=== PATIENT | male | born 1960 | race American Indian/Alaskan Native ===

== ENCOUNTER 2020-08-29 00:33 | Emergency (ER) | payer OTHER ==
[2020-08-29] MEDS ORDERED: OXYMETAZOLINE 0.05% NASAL SPRAY NS ONE (01:13)
--- NOTE | 2020-08-29 01:27 | Emergency Department Report ---
ED ENT HPI - General Chief complaint: Nosebleed Stated complaint: HYPERTENSION Time Seen by Provider: 08/29/20 01:01 Source: patient, EMS Mode of arrival: Stretcher Limitations: No Limitations - History of Present Illness Initial comments: Patient is a 59-year-old male that presents emergency room with complaints of nosebleed. He states his nosebleed started 1 hour prior to arrival. He states he is tried direct pressure. Patient states he can get it to stop. Patient denies trauma. Patient denies fall. Patient denies headache. Patient denies s hortness of breath. Patient denies blurry vision. Patient denies chest pain. Patient denies fever and chills. Patient denies cough. Patient denies respiratory symptoms. Patient denies recent travel. Patient denies recent international travel. Patient denies exposure to the novel coronavirus. Patient denies sick contacts. Patient denies fever and chills. Patient denies cough. Patient denies diarrhea. Patient denies coming in contact with anybody with symptoms of the novel coronavirus. Patient's blood pressure was elevated in the field per EMS. Report received from EMS. Patient's blood pressure now is 140/60. MD complaint: epistaxis -: Sudden Severity: severe Consistency: constant Improves with: pressure, swallowing, rest Worsens with: movement Associated Symptoms: denies: fever, cough, gum swelling, toothache, pain with swallowing, sore throat, tinnitus, hearing loss, discharge from ear, rhinorrhea - Related Data Home Medications Medication Instructions Recorded Confirmed Last Taken Amlodipine Besylate [Norvasc] 10 mg PO 08/29/20 1 Day Ago ~08/28/20 Clonidine HCl/Chlorthalidone 1 each PO 08/29/20 1 Day Ago [Clorpres 0.2-15 Tablet] ~08/28/20 Nebivolol HCl [Bystolic] 1 tab PO DAILY 08/29/20 08/29/20 1 Day Ago ~08/28/20 Nebivolol HCl [Bystolic] 20 mg PO 08/29/20 1 Day Ago ~08/28/20 Pravastatin [Pravachol] 40 mg PO QHS 08/29/20 08/29/20 1 Day Ago ~08/28/20 cloNIDine [Catapres] 0.2 mg PO 08/29/20 08/29/20 1 Day Ago ~08/28/20 hydroCHLOROthiazide [HCTZ] 08/29/20 1 Day Ago ~08/28/20 Allergies Allergy/AdvReac Type Severity Reaction Status Date / Time No Known Allergies Allergy Unverified 08/29/20 01:11 ED Dental HPI - General Chief complaint: Nosebleed Stated complaint: HYPERTENSION Time Seen by Provider: 08/29/20 01:24 Source: patient, EMS Mode of arrival: Stretcher Limitations: No Limitations - Related Data Home Medications Medication Instructions Recorded Confirmed Last Taken Amlodipine Besylate [Norvasc] 10 mg PO 08/29/20 1 Day Ago ~08/28/20 Clonidine HCl/Chlorthalidone 1 each PO 08/29/20 1 Day Ago [Clorpres 0.2-15 Tablet] ~08/28/20 Nebivolol HCl [Bystolic] 1 tab PO DAILY 08/29/20 08/29/20 1 Day Ago ~08/28/20 Nebivolol HCl [Bystolic] 20 mg PO 08/29/20 1 Day Ago ~08/28/20 Pravastatin [Pravachol] 40 mg PO QHS 08/29/20 08/29/20 1 Day Ago ~08/28/20 cloNIDine [Catapres] 0.2 mg PO 08/29/20 08/29/20 1 Day Ago ~08/28/20 hydroCHLOROthiazide [HCTZ] 08/29/20 1 Day Ago ~08/28/20 Allergies Allergy/AdvReac Type Severity Reaction Status Date / Time No Known Allergies Allergy Unverified 08/29/20 01:11 ED Review of Systems ROS: Stated complaint: HYPERTENSION Other details as noted in HPI Constitutional: denies: chills, fever Eyes: denies: eye pain, eye discharge, vision change ENT: as per HPI, epistaxis. denies: ear pain, throat pain Respiratory: denies: cough, shortness of breath, wheezing Cardiovascular: denies: chest pain, palpitations Endocrine: no symptoms reported Gastrointestinal: denies: abdominal pain, nausea, diarrhea Genitourinary: denies: urgency, dysuria Musculoskeletal: denies: back pain, joint swelling, arthralgia Skin: denies: rash, lesions Neurological: denies: headache, weakness, paresthesias Psychiatric: denies: anxiety, depression Hematological/Lymphatic: denies: easy bleeding, easy bruising ED Past Medical Hx - Past Medical History Previous Medical History?: Yes Hx Hypertension: Yes Additional medical history: Hyperlipidemia - Surgical History Past Surgical History?: No - Family History Family history: no significant - Social History Smoking Status: Never Smoker - Medications Home Medications: Home Medications Medication Instructions Recorded Confirmed Last Taken Type Amlodipine Besylate [Norvasc] 10 mg PO 08/29/20 1 Day Ago History ~08/28/20 Clonidine HCl/Chlorthalidone 1 each PO 08/29/20 1 Day Ago History [Clorpres 0.2-15 Tablet] ~08/28/20 Nebivolol HCl [Bystolic] 1 tab PO DAILY 08/29/20 08/29/20 1 Day Ago History ~08/28/20 Nebivolol HCl [Bystolic] 20 mg PO 08/29/20 1 Day Ago History ~08/28/20 Pravastatin [Pravachol] 40 mg PO QHS 08/29/20 08/29/20 1 Day Ago History ~08/28/20 cloNIDine [Catapres] 0.2 mg PO 08/29/20 08/29/20 1 Day Ago History ~08/28/20 hydroCHLOROthiazide [HCTZ] 08/29/20 1 Day Ago History ~08/28/20 ED Physical Exam - General Limitations: No Limitations General appearance: alert, in no apparent distress - Head Head exam: Present: atraumatic, normocephalic - Eye Eye exam: Present: normal appearance - ENT ENT exam: Present: mucous membranes moist - Neck Neck exam: Present: normal inspection - Respiratory Respiratory exam: Present: normal lung sounds bilaterally. Absent: respiratory distress - Cardiovascular Cardiovascular Exam: Present: regular rate, normal rhythm. Absent: systolic murmur, diastolic murmur, rubs, gallop - GI/Abdominal GI/Abdominal exam: Present: soft, normal bowel sounds - Rectal Rectal exam: Present: deferred - Extremities Exam Extremities exam: Present: normal inspection - Back Exam Back exam: Present: normal inspection - Neurological Exam Neurological exam: Present: alert, oriented X3 - Psychiatric Psychiatric exam: Present: normal affect, normal mood - Skin Skin exam: Present: warm, dry, intact, normal color. Absent: rash ED Course Vital Signs 08/29/20 08/29/20 08/29/20 00:56 01:07 02:33 Pulse Rate 98 H 81 81 Respiratory 16 20 17 Rate Blood Pressure 140/93 Blood Pressure 140/93 159/94 180/98 [Right] O2 Sat by Pulse 98 97 99 Oximetry 08/29/20 08/29/20 03:08 03:40 Pulse Rate Respiratory Rate Blood Pressure 186/99 Blood Pressure 175/105 [Right] O2 Sat by Pulse Oximetry - Reevaluation(s) Reevaluation #1: Patient's bleeding is controlled. I applied direct pressure and the patient's bleeding has stopped. We will apply Afrin and then monitor the patient and cont inue to reassess. Patient's blood pressure has improved on its own. 08/29/20 01:26 Reevaluation #2: Afrin was applied and patient continued to bleed. Patient then had a Rhino Rocket placed. See procedure note. 08/29/20 02:00 Reevaluation #3: Patient's blood pressure has improved. Patient was given clonidine and his blood pressure reduced. Patient states he has not had any bleeding. No bleeding noted on exam. Patient's Rhino Rocket is in good position. I discussed all results and clinical findings with patient. I discussed plan of care with patient. Patient agrees with plan of care. Patient is stable for discharge. Patient will be discharged home. Patient given discharge instructions. Patient voiced understanding of discharge instructions. 08/29/20 04:02 - Procedure Description Procedures done: Rhino Rocket placement: Indication intractable nosebleed. Patient's nose continues to bleed even after direct pressure and Afrin placement. Patient then had a Rhino Rocket placed in the right nare. Rhino Rocket was placed under sterile procedure. After the Rhino Rocket in place, the bleeding was controlled. No further bleeding noted. Patient tolerated procedure well. No complications noted. ED Medical Decision Making - Lab Data Result diagrams: 08/29/20 02:24 08/29/20 02:24 - Medical Decision Making Patient is a 59-year-old male who presents emergency room for epistasis. Patient noted to have a right nare nosebleed. Patient tried direct pressure at home. Upon arrival to the ER, I tried direct pressure with minimal success. I then tried putting Afrin into the affected nostril with minimal success. Patient then had a Rhino Rocket placed. Patient tolerated Rhino Rocket well. No further bleeding was noted after placement of the Rhino Rocket into the right nare. See procedure note. Patient's blood pressure was noted to be high after Rhino Rocket placement and the patient was given clonidine. Patient's blood pressure responded well. Patient had labs done after the procedure. Patient's labs were essentially markable for mild renal insufficiency. Patient stable for discharge. Patient will follow as an outpatient. Patient given discharge instruction. Patient encouraged to see an ENT as soon as possible. - Differential Diagnosis Epistasis, hypertension Critical Care Time: Yes Critical care time in (mins) excluding proc time.: 35 Critical care attestation.: If time is entered above; I have spent that time in minutes in the direct care of this critically ill patient, excluding procedure time. Critical Care Time: 35 minutes ED Disposition Clinical Impression: Epistaxis, Renal insufficiency, mild Hypertension Qualifiers: Hypertension type: essential hypertension Qualified Code(s): I10 - Essential (primary) hypertension Disposition: TO HOME OR SELFCARE Is pt being admited?: No Does the pt Need Aspirin: No Condition: Stable Instructions: Nosebleed, Adult, Hypertension, Adult, Hypertension (ED) Additional Instructions: Patient to follow-up with primary care in 2 to 3 days. Patient to follow-up with ENT as soon as possible. Patient to rest. Patient to increase water. Patient to avoid strenuous exercise or heavy lifting until cleared by ENT. Patient to leave Rhino Rocket in place until cleared by ENT. Patient to take Tylenol as needed for pain. Patient to return to the ER if condition worsens, changes or new symptoms arise. Referrals: PRIMARY ANNIE, [Primary Care Provider] - 2-3 Days FAY BLEVINS MD [Referring] - 24 Hours MARINO WALKER MD [Staff Physician] - 24 Hours MENG SUAREZ MD [Staff Physician] - 24 Hours CRISTIN JOHNS MD [Staff Physician] - 24 Hours Time of Disposition: 04:04
[2020-08-29 02:47] LABS: Hematocrit 37.1 % (35.5-45.6); Hemoglobin 12.7 gm/dl (11.8-15.2); Mean Corpuscular HGB Conc 34 % (32-34); Mean Corpuscular Volume 90 fl (84-94); Platelet Count 212 K/mm3 (140-440); Red Blood Count 4.11 M/mm3 (3.65-5.03); Red Cell Distribution Width 14.9 % (13.2-15.2)
[2020-08-29 02:57] LABS: Partial Thromboplastin Time 30.2 Sec. (24.2-36.6)
[2020-08-29 03:01] LABS: Albumin 4.2 g/dL (3.9-5)
[2020-08-29] MEDS ORDERED: cloNIDine 0.1 MG TAB PO ONE (03:05)
[2020-08-29] MEDS ORDERED: cloNIDine 0.2 MG TAB PO ONE (04:16)
[2020-08-29 05:01] VITALS: BP 174/107
== END 2020-08-29 05:12 | disposition home or self-care (01) ==
LOC: ED 00:33
DX: R04.0 Epistaxis (principal); N28.9 Disorder of kidney and ureter, unspecified; I10 Essential (primary) hypertension; Z79.899 Other long term (current) drug therapy
CPT/HCPCS: 36415; 80053; 85027; 85610; 85730